=== PATIENT | male | born 2000 | race Caucasian/White ===

== ENCOUNTER 2025-11-07 05:31 | Emergency (ER) | payer OTHER ==
[~2025-11-07] VITALS: Ht 61 cm; Wt 92.7 kg
[2025-11-07] MEDS ORDERED: CLIN1GEL19 TOP (06:47)
[2025-11-07] MEDS ORDERED: CLINDAMYCIN TOP 1% SOLN 60 ML BTL TOP ONE (07:00)
[2025-11-07] MEDS: CLINDAMYCIN TOP 1% SOLN 60 ML BTL TOP ONE (07:00)
[2025-11-07 07:37] VITALS: BP 126/74; TEMP 96.8; O2SAT 98
== END 2025-11-07 07:44 | disposition home or self-care (01) ==
LOC: M ED 05:31
DX: L73.9 Follicular disorder, unspecified (principal); F17.290 Nicotine dependence, other tobacco product, uncomplicated; Z79.899 Other long term (current) drug therapy